=== PATIENT | male | born 1990 | race Caucasian/White ===

== ENCOUNTER 2019-08-01 06:44 | Emergency (ER) | payer MEDICAID ==
[~2019-08-01] VITALS: Ht 177.8 cm; Wt 85.8 kg
[2019-08-01 06:48] VITALS: BP 131/92
== END 2019-08-01 07:04 | disposition home or self-care (01) ==
LOC: ED 06:44
DX: B34.9 Viral infection, unspecified (principal); Z20.828 Contact with and (suspected) exposure to other viral communicable diseases